=== PATIENT | male | born 1960 | race Caucasian/White ===

== ENCOUNTER 2019-01-12 05:41 | Day surgery (SDC) | payer MEDICAID ==
[~2019-01-12] VITALS: Ht 167.6 cm; Wt 78.9 kg
[2019-01-12] MEDS ORDERED: SODIUM CHLORIDE 0.9% 1,000 ML IV ONE ×2 (06:20→10:46)
[2019-01-12] MEDS ORDERED: SKIN ADHESIVE 0.7 GM EA TOP ONE (06:45)
[2019-01-12] MEDS ORDERED: BACITRACIN 50,000 UNITS/VIAL ONE (06:45)
[2019-01-12] MEDS ORDERED: LIDOCAINE HCL 1% 20ML VIAL (Pyxis) INJ ONE (06:45)
[2019-01-12] MEDS ORDERED: BUPIVACAINE HCL/PF 0.5% (5MG/ML) 10ML ONE (06:45)
[2019-01-12] MEDS ORDERED: NEOSTIGMINE METHYLSULFATE 1MG/ML 10 ML VIAL ONE (07:43)
[2019-01-12] MEDS ORDERED: ROCURONIUM BROMIDE 10MG/ML VIAL 5ML IV ONE ×3 (07:43→09:43)
[2019-01-12] MEDS ORDERED: FENTANYL CITRATE/PF 50MCG/ML 2ML VIAL ONE ×4 (07:43→09:21)
[2019-01-12] MEDS ORDERED: CEFAZOLIN SODIUM 1000MG/VIAL ONE (07:44)
[2019-01-12] MEDS ORDERED: LIDOCAINE HCL/PF 1% 10 MG/ML 5ML VIAL ONE (07:44)
[2019-01-12] MEDS ORDERED: MIDAZOLAM HCL 2 MG/2 ML VIAL ONE (07:44)
[2019-01-12] MEDS ORDERED: PHENYLEPHRINE HCL 10 MG/ML 1ML (IV VIAL) IV ONE (07:44)
[2019-01-12] MEDS ORDERED: METOCLOPRAMIDE HCL 10MG/2ML VIAL ONE (07:44)
[2019-01-12] MEDS ORDERED: PROPOFOL 200MG/20ML VIAL IV ONE (07:44)
[2019-01-12] MEDS ORDERED: SUCCINYLCHOLINE CHLORIDE 200MG/10ML IV ONE (07:44)
[2019-01-12] MEDS ORDERED: EPHEDRINE SULFATE 50MG/ML VIAL ONE (07:44)
[2019-01-12] MEDS ORDERED: GLYCOPYRROLATE 0.2 MG/ML 2ML VIAL ONE (07:44)
[2019-01-12] MEDS ORDERED: SODIUM CHLORIDE 0.9% 10ML VIAL ONE (07:44)
[2019-01-12] MEDS ORDERED: ONDANSETRON HCL 4MG/2ML INJ ONE (07:44)
[2019-01-12] MEDS ORDERED: WARF1TAB46 PO (07:54)
[2019-01-12] MEDS ORDERED: REPA1TAB5 PO (07:54)
[2019-01-12] MEDS ORDERED: CLOP75TA4 PO (07:54)
[2019-01-12] MEDS ORDERED: EMPA10TA PO (07:54)
[2019-01-12] MEDS ORDERED: METO-396 PO (07:54)
[2019-01-12] MEDS ORDERED: SITA100T11 PO (07:54)
[2019-01-12] MEDS ORDERED: LISI2.5T47 PO (07:54)
[2019-01-12] MEDS ORDERED: CILO50TA PO (07:54)
[2019-01-12] MEDS ORDERED: ATOR-2 PO (07:54)
[2019-01-12] MEDS ORDERED: [UNRECOGNIZED DRUG - CODE] PO (07:54)
[2019-01-12] MEDS ORDERED: SODIUM CHLORIDE 0.9% 1,000 ML IV NR (09:30)
[2019-01-12] MEDS ORDERED: ONDANSETRON HCL 4MG/2ML INJ IV PRN (11:00)
[2019-01-12] MEDS ORDERED: MEPERIDINE HCL/PF 25MG/ML CPJ IV PRN ×2 (11:00)
[2019-01-12] MEDS ORDERED: HYDROMORPHONE HCL/PF 2MG/ML CPJ IV PRN (11:00)
[2019-01-12] MEDS ORDERED: MORPHINE SULFATE 2 MG/ML CPJ (NOT FOR IM USE) IV PRN (11:00)
== END 2019-01-12 12:20 | disposition home or self-care (01) ==
LOC: OR 05:41
PROVIDERS: ATTEND Specialist
DX: K40.90 Unilateral inguinal hernia, without obstruction or gangrene, not specified as recurrent (principal); K43.2 Incisional hernia without obstruction or gangrene; E78.5 Hyperlipidemia, unspecified; I10 Essential (primary) hypertension; E11.51 Type 2 diabetes mellitus with diabetic peripheral angiopathy without gangrene; I25.10 Atherosclerotic heart disease of native coronary artery without angina pectoris; Z95.1 Presence of aortocoronary bypass graft; Z79.01 Long term (current) use of anticoagulants; Z79.899 Other long term (current) drug therapy; Z98.890 Other specified postprocedural states
CPT/HCPCS: 49505; 49654; 73706; 82962; C1781; J0330; J0690; J2250; J2370; J2405; J2704; J2710; J2765; J3010; J3490